=== PATIENT | female | born 1945 | race Caucasian/White ===

== ENCOUNTER 2016-08-11 23:02 | Emergency (ER) | payer MEDICARE, OTHER ==
[~2016-08-11] VITALS: Ht 167.6 cm; Wt 74.8 kg
[2016-08-11] MEDS ORDERED: SODIUM CHLORIDE 0.9% 1,000 ML IV ONE (23:30)
[2016-08-11] MEDS ORDERED: MAGNESIUM CITRATE SOLUTION 300 ML BTL PO ONE (23:30)
[2016-08-12 00:09] LABS: Basophils # (auto) 0.2 uL; Basophils % (auto) 1.3 % (0.0-2.0); Eosinophils # (auto) 0.1 uL; Eosinophils % (auto) 0.8 % (0.0-7.0); Hematocrit 46.3 % (36.0-46.0); Hemoglobin 15.1 g/dL (12.2-16.2); Lymphocytes # (auto) 2.4 uL; Lymphocytes % (auto) 16.5 % (10.0-50.0); Mean Corpuscular Hemoglobin 29.7 pg (28.0-32.0); Mean Corpuscular Hgb Conc. 32.5 g/dL (32.0-36.0); Mean Corpuscular Volume 91.3 fL (80.0-100.0); Mean Platelet Volume 8.1 fL (7.4-10.4); Monocytes % (auto) 6.8 % (0.0-12.0); Neutrophils # (auto) 10.8 uL; Neutrophils % (auto) 74.6 % (37.0-80.0); Platelet Count (auto) 305 10^3/uL (140-450); Red Cell Distribution Width 12.6 % (11.6-16.0); White Blood Cell 14.5 10^3/uL (4.4-10.8)
[2016-08-12 00:17] LABS: Albumin 4.1 g/dL (3.4-5.0); Anion Gap 11 (5-15); Aspartate Aminotransferase 17 U/L (15-37); BUN/Creatinine Ratio 14.7; Blood Urea Nitrogen 15 mg/dL (7-18); Calcium 9.1 mg/dL (8.5-10.1); Carbon Dioxide 26 mmol/L (21-32); Chloride 101 mmol/L (98-107); GFR African American 69 mL/min; GFR Non-African American 57 mL/min; Glucose 125 mg/dL (74-106); Potassium 3.6 mmol/L (3.5-5.1); Sodium 138 mmol/L (136-145)
[2016-08-12 00:21] LABS: Alkaline Phosphatase 71 U/L (45-117); Bilirubin, Total 0.4 mg/dL (0.2-1.0); Total Protein 7.5 g/dL (6.4-8.2)
[2016-08-12] MEDS ORDERED: MORPHINE SULF INJ 2 MG/ML SYRINGE 1ML IV ONE (00:30)
[2016-08-12] MEDS ORDERED: ONDANSETRON HCL 4 MG/2 ML VIAL IV ONE (00:30)
[2016-08-12] MEDS ORDERED: cefTRIAXone 1GM/50ML D5W 50 ML IV ONE (00:30)
[2016-08-12] MEDS ORDERED: LEVOFLOXACIN 500MG 100 ML IV ONE (00:30)
[2016-08-12] MEDS ORDERED: metroNIDAZOLE 500MG/100ML 100 ML IV ONE (00:30)
[2016-08-12 00:34] LABS: Urine Bilirubin Negative (Negative); Urine Color Yellow (Yellow); Urine Glucose Normal (Normal); Urine Ketone Negative (Negative); Urine Nitrite Negative (Negative); Urine RBC 4 /hpf (0 - 4); Urine Squamous Epithelial Cell FEW /hpf (<5); Urine Urobilinogen Normal (Negative)
[2016-08-12 00:35] LABS: Urine Blood 1+ /uL (Negative)
[2016-08-12] MEDS ORDERED: ACETAMINOPHEN 325 MG TAB PO ONE (00:45)
[2016-08-12 03:36] VITALS: BP 123/85
== END 2016-08-12 03:36 | disposition home or self-care (01) ==
LOC: ER 23:08
DX: K81.9 Cholecystitis, unspecified (principal); E78.5 Hyperlipidemia, unspecified; E07.89 Other specified disorders of thyroid; Z90.89 Acquired absence of other organs; Z88.0 Allergy status to penicillin; Z88.1 Allergy status to other antibiotic agents; Z88.2 Allergy status to sulfonamides; Z88.6 Allergy status to analgesic agent
CPT/HCPCS: 36415; 74176; 76705; 80053; 81001; 83605; 84484; 85025; 87040; 96361; 96365; 96366; 96368; 99285; J1956; J3490; J7030

== ENCOUNTER → 2021-07-05 | Outpatient (CLI) | payer MEDICARE ==
[2021-07-05 11:25] LABS: Basophils # (auto) 0 10 ^3/uL (0-0.2); Basophils % (auto) 0.8 % (0.0-2.0); Eosinophils # (auto) 0.1 10 ^3/uL (0-0.8); Eosinophils % (auto) 2.4 % (0.0-7.0); Hematocrit 45.1 % (36.0-46.0); Hemoglobin 15.2 g/dL (12.2-16.2); Lymphocytes # (auto) 2.2 10 ^3/uL (0.4-5.4); Lymphocytes % (auto) 38.2 % (10.0-50.0); Mean Corpuscular Hemoglobin 30.1 pg (28.0-32.0); Mean Corpuscular Hgb Conc. 33.8 g/dL (32.0-36.0); Mean Corpuscular Volume 89.1 fL (80.0-100.0); Monocytes # (auto) 0.5 10 ^3/uL (0-1.3); Monocytes % (auto) 9.6 % (0.0-12.0); Neutrophils # (auto) 2.8 10 ^3/uL (1.6-8.6); Nucleated Red Blood Cells % 0.1 %; Red Blood Cells 5.06 10^6/uL (4.0-5.20); Red Cell Distribution Width 13.9 % (11.8-14.3); White Blood Cell 5.6 10^3/uL (4.4-10.8)
[2021-07-05 11:55] LABS: Folate (Folic Acid) 8.16 ng/mL (5.38-24)
[2021-07-05 12:26] LABS: Albumin 3.9 g/dL (3.4-5.0); Calcium 9.5 mg/dL (8.5-10.1); Potassium 3.9 mmol/L (3.5-5.1)
[2021-07-05 12:32] LABS: BUN/Creatinine Ratio 9.8; Bilirubin, Total 0.5 mg/dL (0.2-1.0); Total Protein 7.6 g/dL (6.4-8.2)
== END | disposition home or self-care (01) ==
LOC: LAB 09:57
PROVIDERS: ATTEND Internal Medicine
DX: E78.5 Hyperlipidemia, unspecified (principal); Z12.11 Encounter for screening for malignant neoplasm of colon; E03.9 Hypothyroidism, unspecified; F03.90 Unspecified dementia, unspecified severity, without behavioral disturbance, psychotic disturbance, mood disturbance, and anxiety; R63.4 Abnormal weight loss
CPT/HCPCS: 36415; 80053; 80061; 82270; 82306; 82607; 82746; 83036; 84443; 84550; 85025; 85652

== ENCOUNTER 2022-03-01 15:57 | Emergency (ER) | payer MEDICARE ==
[~2022-03-01] VITALS: Ht 167.6 cm; Wt 81.8 kg
[2022-03-01] MEDS ORDERED: ONDANSETRON ODT 4 MG TAB PO ONE (16:45)
[2022-03-01 16:46] LABS: Basophils # (auto) 0.1 10 ^3/uL (0-0.2); Basophils % (auto) 0.8 % (0.0-2.0); Eosinophils # (auto) 0.2 10 ^3/uL (0-0.8); Eosinophils % (auto) 2.3 % (0.0-7.0); Hematocrit 42.8 % (36.0-46.0); Hemoglobin 14.2 g/dL (12.2-16.2); Lymphocytes # (auto) 3.4 10 ^3/uL (0.4-5.4); Lymphocytes % (auto) 39.2 % (10.0-50.0); Mean Corpuscular Hemoglobin 29.1 pg (28.0-32.0); Mean Corpuscular Hgb Conc. 33.1 g/dL (32.0-36.0); Monocytes # (auto) 0.6 10 ^3/uL (0-1.3); Monocytes % (auto) 7.5 % (0.0-12.0); Neutrophils # (auto) 4.3 10 ^3/uL (1.6-8.6); Neutrophils % (auto) 50.2 % (37.0-80.0); Nucleated Red Blood Cells % 0.1 %; Red Blood Cells 4.86 10^6/uL (4.0-5.20); Red Cell Distribution Width 13.7 % (11.8-14.3); White Blood Cell 8.6 10^3/uL (4.4-10.8)
[2022-03-01 17:00] VITALS: BP 145/65
[2022-03-01 17:03] LABS: Amylase 21 U/L (25-115); Lipase 227 U/L (73-393)
[2022-03-01 17:07] LABS: Alanine Aminotransferase 18 U/L (13-56); Albumin 3.4 g/dL (3.4-5.0); Anion Gap 10 (5-15); Aspartate Aminotransferase 16 U/L (15-37); BUN/Creatinine Ratio 9.8; Blood Urea Nitrogen 13 mg/dL (7-18); Calcium 8.4 mg/dL (8.5-10.1); Carbon Dioxide 23 mmol/L (21-32); Chloride 104 mmol/L (98-107); GFR African American 50 mL/min; GFR Non-African American 41 mL/min; Glucose 105 mg/dL (74-106); Potassium 3.5 mmol/L (3.5-5.1); Sodium 137 mmol/L (136-145)
[2022-03-01 17:10] LABS: Alkaline Phosphatase 76 U/L (45-117); Bilirubin, Total 0.5 mg/dL (0.2-1.0); Total Protein 7.2 g/dL (6.4-8.2)
[2022-03-01 18:22] LABS: Urine Bacteria NONE SEEN /hpf (None Seen); Urine Blood Negative /uL (Negative); Urine Specific Gravity 1.008 (1.001-1.035); Urine WBC 7 /hpf (0 - 5)
[2022-03-01] MEDS ORDERED: CIPR-173 PO (18:48)
[2022-03-01] MEDS ORDERED: ONDA-144 PO (18:48)
== END 2022-03-01 19:01 | disposition home or self-care (01) ==
LOC: ER 15:57
DX: N39.0 Urinary tract infection, site not specified (principal); E78.5 Hyperlipidemia, unspecified; Z90.89 Acquired absence of other organs; Z88.0 Allergy status to penicillin; Z88.1 Allergy status to other antibiotic agents; Z88.8 Allergy status to other drugs, medicaments and biological substances
CPT/HCPCS: 36415; 71045; 76705; 80053; 81001; 82150; 83690; 84484; 85025; 93005; 99285; Q0162

== ENCOUNTER 2022-05-19 11:40 | Emergency (ER) | payer MEDICARE ==
[~2022-05-19] VITALS: Ht 167.6 cm; Wt 78.8 kg
[~2022-05-19 11:40] MED LIST: CIPR-173 PO; LEV100T PO; LEVO500T31 PO; ONDA-144 PO
[2022-05-19 11:53] VITALS: BP 162/69
[2022-05-19 12:54] LABS: Basophils # (auto) 0.1 10 ^3/uL (0-0.2); Eosinophils # (auto) 0.1 10 ^3/uL (0-0.8); Hemoglobin 14.4 g/dL (12.2-16.2); Lymphocytes % (auto) 37.7 % (10.0-50.0); Mean Corpuscular Hemoglobin 29.5 pg (28.0-32.0); Mean Corpuscular Hgb Conc. 33.6 g/dL (32.0-36.0); Mean Corpuscular Volume 87.8 fL (80.0-100.0); Monocytes # (auto) 0.5 10 ^3/uL (0-1.3); Monocytes % (auto) 6.4 % (0.0-12.0); Neutrophils # (auto) 4.2 10 ^3/uL (1.6-8.6); Neutrophils % (auto) 53.9 % (37.0-80.0); Red Cell Distribution Width 13.6 % (11.8-14.3); White Blood Cell 7.8 10^3/uL (4.4-10.8)
[2022-05-19 13:03] LABS: Albumin 3.8 g/dL (3.4-5.0); Calcium 8.9 mg/dL (8.5-10.1); Potassium 3.6 mmol/L (3.5-5.1)
[2022-05-19 13:09] LABS: BUN/Creatinine Ratio 6.1; Bilirubin, Total 0.6 mg/dL (0.2-1.0); Total Protein 7.5 g/dL (6.4-8.2)
[2022-05-19] MEDS ORDERED: SODIUM CHLORIDE 0.9% 1,000 ML IV ONE (13:45)
[2022-05-19 13:57] LABS: Urine Bacteria NONE SEEN /hpf (None Seen); Urine Blood 1+ /uL (Negative); Urine Mucus FEW (None Seen); Urine Specific Gravity 1.007 (1.001-1.035); Urine WBC <1 /hpf (0 - 5)
[2022-05-19] MEDS ORDERED: LACT10SO70 PO (14:36)
[2022-05-19] MEDS ORDERED: LACTULOSE 20Gm/30ML SOLN PO ONE (14:45)
== END 2022-05-19 15:14 | disposition home or self-care (01) ==
LOC: ER 11:40
DX: K59.00 Constipation, unspecified (principal); E86.0 Dehydration; E78.5 Hyperlipidemia, unspecified; Z88.0 Allergy status to penicillin; Z88.1 Allergy status to other antibiotic agents; Z88.2 Allergy status to sulfonamides
CPT/HCPCS: 36415; 74018; 80053; 81001; 83605; 84443; 85025; 96360; 99284; J7030

== ENCOUNTER 2022-07-15 18:06 | Inpatient (IN) | payer MEDICARE, OTHER ==
[~2022-07-15] VITALS: Ht 170.2 cm; Wt 75.5 kg
[~2022-07-15 18:06] MED LIST changes: +LACT10SO70 PO
[2022-07-15 19:27] LABS: Basophils # (auto) 0 10 ^3/uL (0-0.2); Basophils % (auto) 0.3 % (0.0-2.0); Eosinophils # (auto) 0 10 ^3/uL (0-0.8); Eosinophils % (auto) 0.2 % (0.0-7.0); Hematocrit 40.3 % (36.0-46.0); Hemoglobin 13.5 g/dL (12.2-16.2); Lymphocytes # (auto) 0.8 10 ^3/uL (0.4-5.4); Lymphocytes % (auto) 6.7 % (10.0-50.0); Mean Corpuscular Hemoglobin 29.9 pg (28.0-32.0); Mean Corpuscular Hgb Conc. 33.5 g/dL (32.0-36.0); Mean Corpuscular Volume 89.1 fL (80.0-100.0); Monocytes # (auto) 0.7 10 ^3/uL (0-1.3); Monocytes % (auto) 6.1 % (0.0-12.0); Neutrophils # (auto) 10.3 10 ^3/uL (1.6-8.6); Neutrophils % (auto) 86.7 % (37.0-80.0); Red Blood Cells 4.52 10^6/uL (4.0-5.20); Red Cell Distribution Width 14.1 % (11.8-14.3); White Blood Cell 11.9 10^3/uL (4.4-10.8)
[2022-07-15 19:47] LABS: Lactic Acid w/Reflex 2.1 mmol/L (0.4-2.0)
[2022-07-15 19:52] LABS: Albumin 3.2 g/dL (3.4-5.0); BUN/Creatinine Ratio 9.5; Calcium 8.2 mg/dL (8.5-10.1); Magnesium 2.2 mg/dL (1.6-2.6)
[2022-07-15 19:54] LABS: Bilirubin, Total 0.3 mg/dL (0.2-1.0); Total Protein 6.7 g/dL (6.4-8.2)
[2022-07-15 20:01] LABS: Potassium 2.8 mmol/L (3.5-5.1)
[2022-07-15] MEDS ORDERED: D5W/SOD CHL 0.45% 1,000 ML IV ONE (20:15)
[2022-07-15] MEDS ORDERED: POTASSIUM EFFERVESENT TAB 25 MEQ PO ONE (20:45)
[2022-07-15] MEDS ORDERED: POTASSIUM CHL 20 Meq TABLET PO ONE (20:45)
[2022-07-15 21:15] LABS: Alcohol, Urine < 3.0 mg/dL (0-10); Amphetamine Screen, Urine NEGATIVE (NEGATIVE); Barbiturate Scree,Urine NEGATIVE (NEGATIVE); Benzodiazephine Screen, Urine NEGATIVE (NEGATIVE); Cannabinoid Screen, Urine NEGATIVE (NEGATIVE); Cocaine Screen, Urine NEGATIVE (NEGATIVE); Opiate Scree,Urine NEGATIVE (NEGATIVE); Phencyclidine Screen, Urine NEGATIVE (NEGATIVE)
[2022-07-15 21:21] LABS: Urine Bacteria NONE SEEN /hpf (None Seen); Urine Blood Negative /uL (Negative); Urine Specific Gravity 1.006 (1.001-1.035); Urine WBC 1 /hpf (0 - 5)
[2022-07-15] MEDS: ACCU-CHEK COMFORT CURVE STRIP VI SCH ×3 (21:35→23:14)
[2022-07-15] MEDS ORDERED: OCTREOTIDE ACETATE 100 MCG in SODIUM CHL 0.9% 50 ML IV ONE (21:45)
[2022-07-15] MEDS ORDERED: HYDROCORTISONE SOD SUCC 100 MG/2ML INJ VIAL IV ONE (21:45)
[2022-07-15] MEDS ORDERED: OCTREOTIDE ACETATE 100 MCG/ML VL ONE ×2 (21:54→21:55)
[2022-07-15 22:04] LABS: Magnesium 2.2 mg/dL (1.6-2.6); Phosphorus 2.4 mg/dL (2.5-4.90)
[2022-07-16] VITALS (27 sets, daily range): BP systolic 125–163; BP diastolic 59–89
[2022-07-16] MEDS: ACCU-CHEK COMFORT CURVE STRIP VI SCH ×15 (00:05→22:16)
[2022-07-16] MEDS ORDERED: DOCUSATE SOD 100 MG CAP PO PRN (00:15)
[2022-07-16] MEDS ORDERED: ACETAMINOPHEN 325 MG TAB PO PRN (00:15)
[2022-07-16] MEDS ORDERED: hydrALAZINE HCL 20 MG/ML VL IV PRN (00:15)
[2022-07-16] MEDS ORDERED: ONDANSETRON HCL 4 MG/2 ML VIAL IV PRN (00:15)
[2022-07-16] MEDS ORDERED: HYDROcodone-ACET 5/325MG TAB PO PRN (00:15)
[2022-07-16] MEDS ORDERED: NITROGLYCERIN 0.4 MG SL TAB SL PRN (00:15)
[2022-07-16] MEDS ORDERED: MORPHINE SULFATE INJ 2 MG/ml SYRG IV PRN (00:15)
[2022-07-16 00:23] LABS: Albumin 3.4 g/dL (3.4-5.0); Calcium 8.8 mg/dL (8.5-10.1); Potassium 4.3 mmol/L (3.5-5.1)
[2022-07-16 00:25] LABS: BUN/Creatinine Ratio 7.3
[2022-07-16 00:28] LABS: Bilirubin, Total 0.4 mg/dL (0.2-1.0)
[2022-07-16] MEDS ORDERED: levoFLOXacin 500MG 100 ML IV ONE (01:00)
[2022-07-16] MEDS ORDERED: levoFLOXacin 500MG 100 ML IV SCH ×2 (01:00→22:00)
[2022-07-16] MEDS ORDERED: AZITHROMYCIN 500MG/ 250ML 250 ML IV ONE (01:00)
[2022-07-16] MEDS ORDERED: HYDROCORTISONE SOD SUCC 100 MG/2ML INJ VIAL IV SCH (04:00)
[2022-07-16] MEDS ORDERED: OCTREOTIDE ACETATE 500 MCG in SODIUM CHL 0.9% 99 ML IV SCH (04:00)
[2022-07-16 04:39] LABS: Basophils # (auto) 0 10 ^3/uL (0-0.2); Basophils % (auto) 0.3 % (0.0-2.0); Calcium 8.9 mg/dL (8.5-10.1); Eosinophils # (auto) 0 10 ^3/uL (0-0.8); Hematocrit 43.6 % (36.0-46.0); Hemoglobin 14.7 g/dL (12.2-16.2); Lymphocytes # (auto) 0.4 10 ^3/uL (0.4-5.4); Lymphocytes % (auto) 3.8 % (10.0-50.0); Mean Corpuscular Hemoglobin 29.8 pg (28.0-32.0); Mean Corpuscular Hgb Conc. 33.8 g/dL (32.0-36.0); Mean Corpuscular Volume 88.1 fL (80.0-100.0); Monocytes # (auto) 0.4 10 ^3/uL (0-1.3); Monocytes % (auto) 3.2 % (0.0-12.0); Neutrophils # (auto) 10.8 10 ^3/uL (1.6-8.6); Neutrophils % (auto) 92.7 % (37.0-80.0); Potassium 5.4 mmol/L (3.5-5.1); Red Blood Cells 4.95 10^6/uL (4.0-5.20); Red Cell Distribution Width 14.1 % (11.8-14.3); White Blood Cell 11.7 10^3/uL (4.4-10.8)
[2022-07-16 04:43] LABS: Albumin 3.2 g/dL (3.4-5.0); BUN/Creatinine Ratio 7.5
[2022-07-16 04:45] LABS: Bilirubin, Total 0.5 mg/dL (0.2-1.0)
[2022-07-16] MEDS ORDERED: LEVOTHYROXINE SODIUM 100 MCG TAB PO SCH (07:00)
[2022-07-16] MEDS: D5W/SOD CHL 0.45% 1,000 ML IV SCH ×2 (07:27→13:35)
[2022-07-16] MEDS: ASPirin 81 mg TAB PO SCH (10:36)
[2022-07-16] MEDS: FAMOTIDINE (10MG/ML) 2ML VL IV SCH ×2 (10:36→22:11)
[2022-07-16] MEDS: ENOXAPARIN SOD 30 MG/0.3 ML SYRINGE SC SCH (10:42)
[2022-07-16] MEDS ORDERED: clonazePAM 0.5 MG TAB PO PRN (12:00)
[2022-07-16] MEDS: risperiDONE 1 MG TAB PO SCH ×2 (19:00→22:12)
[2022-07-16] MEDS ORDERED: metroNIDAZOLE 500MG/100ML 100 ML IV ONE (19:15)
[2022-07-16 20:32] LABS: Amylase 35 U/L (25-115); Lipase 412 U/L (73-393)
[2022-07-16 20:34] LABS: Albumin 2.9 g/dL (3.4-5.0); Calcium 8.4 mg/dL (8.5-10.1); Potassium 3.9 mmol/L (3.5-5.1)
[2022-07-16 20:37] LABS: Bilirubin, Total 0.5 mg/dL (0.2-1.0); Total Protein 6.3 g/dL (6.4-8.2)
[2022-07-16] MEDS ORDERED: AZITHROMYCIN 500MG/ 250ML 250 ML IV SCH (21:00)
[2022-07-16] MEDS ORDERED: DONEPEZIL HYDROCHLORIDE 5 MG TAB PO SCH (22:00)
[2022-07-16] MEDS ORDERED: risperiDONE 1 MG TAB PO SCH (22:00)
[2022-07-16] MEDS: metroNIDAZOLE 500MG/100ML 100 ML IV SCH (22:11)
[2022-07-17] MEDS: ACCU-CHEK COMFORT CURVE STRIP VI SCH ×6 (01:25→22:29)
[2022-07-17] MEDS: D5W/SOD CHL 0.45% 1,000 ML IV SCH (02:55)
[2022-07-17 05:00] VITALS: BP 143/72
[2022-07-17 06:05] LABS: Basophils # (auto) 0.1 10 ^3/uL (0-0.2); Basophils % (auto) 0.8 % (0.0-2.0); Eosinophils # (auto) 0.1 10 ^3/uL (0-0.8); Eosinophils % (auto) 0.7 % (0.0-7.0); Hematocrit 44.1 % (36.0-46.0); Lymphocytes # (auto) 2.2 10 ^3/uL (0.4-5.4); Lymphocytes % (auto) 24.7 % (10.0-50.0); Mean Corpuscular Hemoglobin 29.9 pg (28.0-32.0); Mean Corpuscular Volume 87.8 fL (80.0-100.0); Monocytes % (auto) 11.6 % (0.0-12.0); Neutrophils # (auto) 5.4 10 ^3/uL (1.6-8.6); Neutrophils % (auto) 62.2 % (37.0-80.0); Nucleated Red Blood Cells % 0.1 %; Red Blood Cells 5.02 10^6/uL (4.0-5.20); Red Cell Distribution Width 14.4 % (11.8-14.3); White Blood Cell 8.7 10^3/uL (4.4-10.8)
[2022-07-17] MEDS: metroNIDAZOLE 500MG/100ML 100 ML IV SCH ×3 (06:16→21:56)
[2022-07-17 06:34] LABS: Albumin 3.4 g/dL (3.4-5.0); BUN/Creatinine Ratio 11.1; Calcium 8.6 mg/dL (8.5-10.1); Potassium 3.8 mmol/L (3.5-5.1)
[2022-07-17 06:43] LABS: Bilirubin, Total 0.5 mg/dL (0.2-1.0); Total Protein 6.8 g/dL (6.4-8.2)
[2022-07-17 08:34] LABS: Free T4 (Free Thyroxine) 0.84 ng/dL (0.89-1.76)
[2022-07-17 08:35] LABS: T3 Total 0.75 ng/mL (0.60-1.81)
[2022-07-17] MEDS ORDERED: levoFLOXacin 500MG 100 ML IV SCH (10:00)
[2022-07-17] MEDS: ENOXAPARIN SOD 30 MG/0.3 ML SYRINGE SC SCH (10:00)
[2022-07-17] MEDS: LEVOTHYROXINE SODIUM 100 MCG TAB PO SCH (10:00)
[2022-07-17] MEDS: ASPirin 81 mg TAB PO SCH (10:00)
[2022-07-17] MEDS: FAMOTIDINE (10MG/ML) 2ML VL IV SCH (10:29)
[2022-07-17] MEDS: levoFLOXacin 250MG 50 ML IV SCH (10:31)
[2022-07-17 12:39] LABS: Folate (Folic Acid) 10.86 ng/mL (5.38-24)
[2022-07-17] MEDS: risperiDONE 1 MG TAB PO SCH ×2 (17:08→22:00)
[2022-07-17] MEDS ORDERED: HALOPERIDOL LACTATE 5 MG/ML INJ VIAL IM PRN (20:45)
[2022-07-17] MEDS ORDERED: LORazepam 2MG/ML-1ML VIAL IV PRN (21:00)
[2022-07-17 22:00] VITALS: BP 123/50
[2022-07-18] MEDS: ACCU-CHEK COMFORT CURVE STRIP VI SCH ×6 (02:01→22:22)
[2022-07-18] MEDS: metroNIDAZOLE 500MG/100ML 100 ML IV SCH ×3 (05:30→22:23)
[2022-07-18 09:00] VITALS: BP 124/59
[2022-07-18] MEDS: levoFLOXacin 250MG 50 ML IV SCH (09:40)
[2022-07-18] MEDS: ENOXAPARIN SOD 30 MG/0.3 ML SYRINGE SC SCH (09:45)
[2022-07-18] MEDS: ASPirin 81 mg TAB PO SCH (09:45)
[2022-07-18] MEDS: LEVOTHYROXINE SODIUM 100 MCG TAB PO SCH (10:36)
[2022-07-18 10:53] LABS: Potassium 3.9 mmol/L (3.5-5.1)
[2022-07-18 10:54] LABS: Basophils # (auto) 0.1 10 ^3/uL (0-0.2); Basophils % (auto) 1.4 % (0.0-2.0); Eosinophils # (auto) 0.1 10 ^3/uL (0-0.8); Eosinophils % (auto) 1.3 % (0.0-7.0); Hematocrit 42.3 % (36.0-46.0); Hemoglobin 14.2 g/dL (12.2-16.2); Lymphocytes # (auto) 2.2 10 ^3/uL (0.4-5.4); Lymphocytes % (auto) 25.9 % (10.0-50.0); Mean Corpuscular Hemoglobin 29.4 pg (28.0-32.0); Mean Corpuscular Hgb Conc. 33.6 g/dL (32.0-36.0); Mean Corpuscular Volume 87.4 fL (80.0-100.0); Monocytes # (auto) 0.8 10 ^3/uL (0-1.3); Monocytes % (auto) 9.9 % (0.0-12.0); Neutrophils # (auto) 5.2 10 ^3/uL (1.6-8.6); Neutrophils % (auto) 61.5 % (37.0-80.0); Nucleated Red Blood Cells % 0.2 %; Red Blood Cells 4.84 10^6/uL (4.0-5.20); Red Cell Distribution Width 14.2 % (11.8-14.3); White Blood Cell 8.5 10^3/uL (4.4-10.8)
[2022-07-18 11:03] LABS: BUN/Creatinine Ratio 16.5; Calcium 8.4 mg/dL (8.5-10.1)
[2022-07-18] MEDS ORDERED: LEVO500T31 PO (12:08)
[2022-07-18] MEDS ORDERED: DEXT40GE PO (12:08)
[2022-07-18 13:00] VITALS: BP 147/68
[2022-07-18 16:45] VITALS: BP 147/74
[2022-07-18] MEDS: risperiDONE 1 MG TAB PO SCH ×2 (17:23→19:37)
[2022-07-18 22:00] VITALS: BP 158/72
[2022-07-19] MEDS: ACCU-CHEK COMFORT CURVE STRIP VI SCH ×3 (02:21→10:26)
[2022-07-19] MEDS: metroNIDAZOLE 500MG/100ML 100 ML IV SCH ×2 (05:37→13:55)
[2022-07-19 06:00] VITALS: BP 144/85
[2022-07-19] MEDS: ASPirin 81 mg TAB PO SCH (10:25)
[2022-07-19] MEDS: levoFLOXacin 250MG 50 ML IV SCH (10:25)
[2022-07-19] MEDS: LEVOTHYROXINE SODIUM 100 MCG TAB PO SCH (10:26)
[2022-07-19] MEDS: ENOXAPARIN SOD 30 MG/0.3 ML SYRINGE SC SCH (10:26)
[2022-07-19 10:29] VITALS: BP 137/71
[2022-07-19 13:00] VITALS: BP 150/92
[2022-07-29] MEDS ORDERED: BACDST PO (17:58)
== END 2022-07-19 15:41 | disposition home health service (06) | DRG 637 ==
LOC: EEVIPCON 18:06 → ER 18:06 → EDBD 18:06 → ICU WEST 07-16 00:15 → TELE-CENTR 07-16 17:45
PROVIDERS: ADMIT Nurse Practitioner Family; ATTEND Nurse Practitioner Acute Care
DX: E11.649 Type 2 diabetes mellitus with hypoglycemia without coma (principal); I21.4 Non-ST elevation (NSTEMI) myocardial infarction; J69.0 Pneumonitis due to inhalation of food and vomit; E87.1 Hypo-osmolality and hyponatremia; N30.90 Cystitis, unspecified without hematuria; E87.6 Hypokalemia; E78.5 Hyperlipidemia, unspecified; F03.90 Unspecified dementia, unspecified severity, without behavioral disturbance, psychotic disturbance, mood disturbance, and anxiety; I10 Essential (primary) hypertension; R55 Syncope and collapse; K80.20 Calculus of gallbladder without cholecystitis without obstruction; K82.8 Other specified diseases of gallbladder; D72.829 Elevated white blood cell count, unspecified; Z20.822 Contact with and (suspected) exposure to COVID-19; E03.9 Hypothyroidism, unspecified; Z88.0 Allergy status to penicillin; Z88.1 Allergy status to other antibiotic agents; Z88.2 Allergy status to sulfonamides
CPT/HCPCS: 36415; 70450; 70551; 71045; 74176; 78226; 80048; 80053; 80307; 81001; 82010; 82150; 82607; 82746; 82962; 83036; 83605; 83690; 83735; 83880; 83930; 84100; 84439; 84443; 84480; 84484; 85025; 87040; 87077; 87081; 87086; 87186; 87426; 93005; 93306; 95819; 96361; 96374; 99291; G0378; J1956; J3490

== ENCOUNTER 2022-07-20 11:21 | Emergency (ER) | payer MEDICARE, OTHER ==
[~2022-07-20] VITALS: Ht 170.2 cm; Wt 77.2 kg
[~2022-07-20 11:21] MED LIST changes: +DEXT40GE PO
[2022-07-20] MEDS ORDERED: SODIUM CHLORIDE 0.9% 1,000 ML IV ONE (13:00)
[2022-07-20 14:56] VITALS: BP 128/85
== END 2022-07-20 15:32 | disposition home or self-care (01) ==
LOC: ER 11:21
DX: T83.098A Other mechanical complication of other urinary catheter, initial encounter (principal); F03.90 Unspecified dementia, unspecified severity, without behavioral disturbance, psychotic disturbance, mood disturbance, and anxiety; E78.5 Hyperlipidemia, unspecified; Z87.440 Personal history of urinary (tract) infections; Z88.0 Allergy status to penicillin
CPT/HCPCS: 72170; 99283; J7030

== ENCOUNTER 2022-07-27 20:21 | Emergency (ER) | payer MEDICARE ==
[~2022-07-27] VITALS: Ht 167.6 cm; Wt 75.9 kg
[2022-07-27] MEDS ORDERED: SODIUM CHLORIDE 0.9% 1,000 ML IV ONE (21:00)
[2022-07-27 21:31] LABS: Basophils # (auto) 0 10 ^3/uL (0-0.2); Basophils % (auto) 0.3 % (0.0-2.0); Eosinophils # (auto) 0.1 10 ^3/uL (0-0.8); Eosinophils % (auto) 0.8 % (0.0-7.0); Hematocrit 39.3 % (36.0-46.0); Hemoglobin 13.6 g/dL (12.2-16.2); Lymphocytes # (auto) 2.8 10 ^3/uL (0.4-5.4); Lymphocytes % (auto) 22.8 % (10.0-50.0); Mean Corpuscular Hemoglobin 29.9 pg (28.0-32.0); Mean Corpuscular Hgb Conc. 34.6 g/dL (32.0-36.0); Mean Corpuscular Volume 86.5 fL (80.0-100.0); Monocytes # (auto) 1.1 10 ^3/uL (0-1.3); Monocytes % (auto) 8.5 % (0.0-12.0); Neutrophils # (auto) 8.4 10 ^3/uL (1.6-8.6); Neutrophils % (auto) 67.6 % (37.0-80.0); Nucleated Red Blood Cells % 0.1 %; Red Blood Cells 4.55 10^6/uL (4.0-5.20); Red Cell Distribution Width 13.8 % (11.8-14.3); White Blood Cell 12.4 10^3/uL (4.4-10.8)
[2022-07-27 21:54] LABS: Albumin 3.3 g/dL (3.4-5.0); Calcium 8.8 mg/dL (8.5-10.1); Potassium 3.5 mmol/L (3.5-5.1)
[2022-07-27 22:00] LABS: BUN/Creatinine Ratio 10.9; Bilirubin, Total 0.3 mg/dL (0.2-1.0); Total Protein 6.8 g/dL (6.4-8.2)
[2022-07-27] MEDS ORDERED: cefTRIAXone 1GM/50ML D5W 50 ML IV ONE (23:30)
[2022-07-27 23:32] LABS: Urine Bacteria NONE SEEN /hpf (None Seen); Urine Blood TRACE /uL (Negative); Urine Mucus FEW (None Seen); Urine Specific Gravity 1.012 (1.001-1.035); Urine WBC 27 /hpf (0 - 5)
[2022-07-27 23:37] VITALS: BP 156/80
[2022-07-27] MEDS ORDERED: CEPH-510 PO (23:39)
[2022-07-29] MEDS ORDERED: BACDST PO (17:58)
== END 2022-07-27 23:59 | disposition home or self-care (01) ==
LOC: ER 20:21
DX: R33.9 Retention of urine, unspecified (principal); N39.0 Urinary tract infection, site not specified; T83.028A Displacement of other urinary catheter, initial encounter; E78.5 Hyperlipidemia, unspecified; E03.9 Hypothyroidism, unspecified; Z90.89 Acquired absence of other organs; Z79.2 Long term (current) use of antibiotics; Z79.899 Other long term (current) drug therapy; Z88.0 Allergy status to penicillin; Z88.2 Allergy status to sulfonamides; Z88.8 Allergy status to other drugs, medicaments and biological substances
CPT/HCPCS: 36415; 51702; 80053; 81001; 85025; 87086; 96361; 96374; 99285; J0696; J7030

== ENCOUNTER 2023-05-11 13:59 | Emergency (ER) | payer OTHER, MEDICARE ==
[~2023-05-11] VITALS: Ht 167.6 cm; Wt 68.1 kg
[~2023-05-11 13:59] MED LIST changes: +BACDST PO; +CEPH-510 PO; +CIPR0.3S67 OP
[2023-05-11] MEDS ORDERED: cefTRIAXone SOD 1,000 MG VL IM ONE (14:15)
[2023-05-11] MEDS ORDERED: [UNRECOGNIZED DRUG - CODE] PO (14:20)
[2023-05-11] MEDS ORDERED: CEPH250C PO (14:20)
[2023-05-11] MEDS ORDERED: LIDOCAINE 1% HCL (LOCAL ANESTH.) INJ 20ML MDV ONE (14:54)
[2023-05-11 14:58] LABS: Urine Amorphous Crystal FEW /hpf (None Seen); Urine Bacteria NONE SEEN /hpf (None Seen); Urine Blood TRACE /uL (Negative); Urine Clarity CLOUDY (Clear); Urine Color Yellow (Yellow); Urine Mucus FEW (None Seen); Urine Protein, UAD 1+ (Negative); Urine Specific Gravity 1.021 (1.001-1.035); Urine Urobilinogen Normal (Negative); Urine WBC 162 /hpf (0 - 5); Urine WBC Clumps PRESENT /hpf (None Seen); Urine pH 8.5 (5.0-8.0)
[2023-05-11 15:30] VITALS: BP 107/44; PULSE 91; RESP 16; TEMP 97.1; O2SAT 96
[2023-05-11] MEDS ORDERED: LIDOCAINE 1% HCL (LOCAL ANESTH.) INJ 20ML MDV IJ ONE (15:30)
== END 2023-05-11 15:34 | disposition home or self-care (01) ==
LOC: ER 13:59
DX: N39.0 Urinary tract infection, site not specified (principal); K80.20 Calculus of gallbladder without cholecystitis without obstruction; F03.90 Unspecified dementia, unspecified severity, without behavioral disturbance, psychotic disturbance, mood disturbance, and anxiety; E78.5 Hyperlipidemia, unspecified; Z98.890 Other specified postprocedural states; Z88.8 Allergy status to other drugs, medicaments and biological substances; Z79.899 Other long term (current) drug therapy
CPT/HCPCS: 81001; 87086; 87088; 87186; 96372; 99283; J0696; J2001